=== PATIENT | male | born 1940 | race Caucasian/White ===

== ENCOUNTER 2017-09-12 09:12 | Inpatient (IN) | payer OTHER ==
[~2017-09-12] VITALS: Ht 182.9 cm; Wt 71.7 kg
[~2017-09-12 09:12] MED LIST: ALLOPURINOL 30300 M2 PO; ASA81BEC PO; AZITHROMYCIN 2250 MG PO; B12INJ IM; CALCIUM 500 +1 EAC5 PO; CARVEDILOL3.125 MG PO; COREG PO; DELTASONE20 MG PO; DULCOLAX5 MG PO; DUONEB 2.5-0.5 M3 ML INH; HYDROCODONE-AP1 EAC6 PO; INDOMETHACIN 2525 MG PO; KEFLEX500 MG PO; LEVAQUIN 500 M500 M2 PO; LISINOPRIL5 MG PO; MEDROLDOSEPACK PO; MYSOLINE PO; NIASPAN 500 MG500 M1 PO; NITROGLYCERIN0.4 MG PO; NORCO 5-325 TA1 EACH PO; PLAVIX 75 MG TA75 MG PO; PREDNISONE 10 M10 MG PO; PREDNISONE10 MG PO; PREDNISONE50 MG PO; PRIMIDONE50 MG PO; PROAIR HFA8.5 GM INH; PROTONIX40 M4 PO; SPIRIVA INH; SYMBICORT160 MCG/4. INH; TYLENOL325 MG PO; VALIUM5 MG PO; VITAMIN B-12500 MCG PO; XANAX 0.25 MG0.25 MG PO; ZOCOR40 MG PO
[2017-09-12 09:16] VITALS: BP 129/74
[2017-09-12] MEDS ORDERED: VITAMIN E400 UNIT PO (09:26)
[2017-09-12] MEDS ORDERED: LASIX 20 MG TAB20 MG PO (09:26)
[2017-09-12] MEDS ORDERED: KLOR-CON 1010 MEQ PO (09:26)
[2017-09-12 09:53] LABS: ABSOLUTE BASOPHILS 0.1 thou/uL (0.0-0.2); ABSOLUTE EOSINOPHILS 0.3 thou/uL (0.0-0.7); ABSOLUTE LYMPHOCYTES 1.7 thou/uL (0.8-5.3); BASOPHILS 0.7 %; EOSINOPHILS 2.4 %; HEMATOCRIT 44.1 % (42.0-52.0); HEMOGLOBIN 14.8 gm/dL (14.0-18.0); LYMPHOCYTES 15.1 %; MCH 30.7 pg (26.0-34.0); MCHC 33.5 g/dL (28.0-37.0); MCV 91.6 fL (80.0-100.0); MONOCYTES 9.4 %; NUCLEATED RBCS 0 /100WBC; PLATELET COUNT* 71 thou/uL (150-400); POLYS 72.4 %; RBC 4.82 mil/uL (4.50-6.00); RDW-CV 15.8 % (10.5-14.5)
[2017-09-12 10:03] LABS: CALCIUM 8.6 mg/dL (8.5-10.1); CREATININE 1.3 mg/dL (0.6-1.3); POTASSIUM 3.9 mmol/L (3.5-5.1)
[2017-09-12 10:13] LABS: ALBUMIN 3.7 g/dL (3.4-5.0); MAGNESIUM 1.6 mg/dL (1.8-2.4); TOTAL BILIRUBIN 0.2 mg/dL (<0.1-1.0); TOTAL PROTEIN 6.8 g/dL (6.4-8.2)
[2017-09-12 10:45] VITALS: BP 95/54
[2017-09-12 11:01] LABS: BE -1.5 mmol/L (-2 to +3); PCO2 38.5 mmHg (35.0-45.0); pH 7.395 (7.340-7.450)
[2017-09-12 11:05] LABS: PO2 308.2 mmHg (75.0-100.0)
[2017-09-12 12:10] VITALS: BP 106/76
--- NOTE | 2017-09-12 14:16 | NUR ---
RECEIVED PT FROM Ranjan AT 1220, REPORT FROM JEAN-PAUL AT 1140. PT ARRIVED TO VIA AMBULANCE R/T RESPIRATORY DISTRESS/FAILURE. PT IN BED, BED IN LOW AND LOCKED POSITION, BED ALARM ON FOR PT SAFETY, FALL PRECAUTIONS IN PLACE. CALL BUTTON AND PERSONAL ITEMS PLACED IN REACH, AT BEDSIDE. ADMISSION, SEPSIS, VS COMPLETED. HEART STRIP COMPLETED, SEE CHART. VSS ON 3L NC, CONVERTIBLE POWER SHOVEL OPERATOR NSR/PAC'S 93 BPM. PULSES RADIAL AND PEDAL WNL, NO EDEMA NOTED. LUNGS WHEEZY PER AUSCULTATION BILATERALLY. ABD SOFT, NON TENDER TO PALPATION. LABS REVIEWED. PERRL, AFEBRILE, SKIN INTACT WITH SCATTERED BRUISING R/T BLOOD THINNER MEDICATION PER PT AND STATEMENT. IV IN RIGHT AC STARTED IN FIELD PATENT AND RECEIVING FLUIDS. MEDS RECONCILED AND MD NOTIFIED. PT UP SBA, WEAK, FATIGUED. PT REFUSING BIPAP. PT DENIES PAIN. WILL CONTINUE TO MONITOR.
[2017-09-12 19:40] VITALS: BP 93/65
--- NOTE | 2017-09-12 20:03 | NUR ---
BEDSIDE REPORT TO DIRECTOR UTILIZATION MANAGEMENT FOR CONTINUED CARES. PT IN BED, VERY ANXIOUS, AGITATED, STATES HE IS NOT ABLE TO BREATH. RESPIRATIONS 16, O2 STAT 95%, LUNG SOUNDS LESS WHEEZY, CLEARER THAN EARLIER IN SHIFT, COLOR IN EXTREMEITES IMPROVED, NOT DUSKY, PINKER NOW. HRRR PER MONITOR AND AUSCULTATION. HEPARIN GTT CONTINUES. FALL PRECAUTIONS IN PLACE, PT BEDREST R/T CONFIRMED PE'S IN LUNGS BILATERALLY. AT BEDSIDE. HOURLY ROUNDING COMPLETED. PT CONTINUES ON 3L O2 NC.
[2017-09-12 21:13] LABS: INFLUENZA A ANTIGEN None Detected (None Detect); INFLUENZA B ANTIGEN None Detected (None Detect)
[2017-09-12 23:41] LABS: URINE BILIRUBIN NEGATIVE (Negative); URINE BLOOD TRACE (Negative); URINE CLARITY CLEAR; URINE COLOR STRAW; URINE GLUCOSE-RANDOM NEGATIVE (Negative); URINE KETONES NEGATIVE (Negative); URINE LEUKOCYTES-REFLEX NEGATIVE (Negative); URINE NITRITE-REFLEX NEGATIVE (Negative); URINE PROTEIN NEGATIVE (Negative); URINE UROBILINOGEN 0.2 E.U./dl (0.2-1.0)
[2017-09-13] VITALS (7 sets, daily range): BP systolic 89–135; BP diastolic 58–75
[2017-09-13 05:09] LABS: HEMATOCRIT 41.2 % (42.0-52.0); HEMOGLOBIN 13.7 gm/dL (14.0-18.0); MCH 30.8 pg (26.0-34.0); MCHC 33.3 g/dL (28.0-37.0); MCV 92.7 fL (80.0-100.0); MPV 9.9 fl. (7.2-11.1); NUCLEATED RBCS 0 /100WBC; PLATELET COUNT* 63 thou/uL (150-400); RBC 4.44 mil/uL (4.50-6.00); RDW-CV 16.1 % (10.5-14.5); WBC 10.9 thou/uL (4.0-11.0)
--- NOTE | 2017-09-13 05:40 | NUR ---
END SHIFT: PT RESTED WELL. REMAINS ON 3L. NO COMPLAINTS OF PAIN. ANXIETY HAS DECREASED OVER SHIFT. HEPARIN GTT CURENTLY INFUSING, PT IS TOLERATING WELL. SR/ST ON MONITOR. SAFETY RECAUTIONS IN PLACE. PERFORMED HOURLY ROUNDING. WILL CONT TO MONITOR.
[2017-09-13 05:52] LABS: INR 1.1; PROTIME 10.6 Seconds (9.20-11.50)
[2017-09-13 06:03] LABS: CALCIUM 8.8 mg/dL (8.5-10.1); CREATININE 1.4 mg/dL (0.6-1.3)
[2017-09-13 06:09] LABS: POTASSIUM 5.4 mmol/L (3.5-5.1)
[2017-09-13 07:44] LABS: ABSOLUTE LYMPHOCYTES 0.4 thou/uL (0.8-5.3); ABSOLUTE MONOCYTES 0.2 thou/uL (0.0-1.2); ABSOLUTE NEUTROPHILS 10.2 thou/uL (1.6-8.1); PLATELET ESTIMATE DECREASED
--- NOTE | 2017-09-13 13:51 | EKG ---
[place] [address] ELECTROCARDIOGRAM REPORT Name: LEAH BROOKS Room: [address] ADM IN .R.#: [id number] Admission: 09/12/17 Attend Phys: Matthew Tristan MD Discharge: Date of : 44 Report #: [id number] THIS REPORT FOR: //name// [facility] ED Test Date: 2017-09-12 Test Time: 09:30:18 Pat Name: LEAH BROOKS Department: Room: [address] Gender: M Gis Technician: : 1940 Requested By: Matthew Tristan Order Number: [id number] Reading MD: Frank Brothers Measurements Intervals [place] Rate: 101 P: 64 RI: 128 QRS: -12 QRSD: 73 T: 50 QT: 361 QTc: 468 Interpretive Statements Sinus tachycardia Atrial premature complex Minimal ST depression, lateral leads Compared to ECG 09/08/2016 11:37:37 Atrial premature complex(es) now present ST (T wave) deviation now present Myocardial infarct finding no longer present Electronically Signed On 09-13-2017 13:51:05 VEST TAILOR by Frank Brothers [email or web address] <ELECTRONICALLY SIGNED> By: Frank Brothers MD, FACC 09/13/17 1351 0930 0930 Frank Brothers MD, FAC /EPI
--- NOTE | 2017-09-13 13:53 | EKG ---
[place] [address] ELECTROCARDIOGRAM REPORT Name: LEAH BROOKS Room: [address] ADM IN .R.#: [id number] Admission: 09/12/17 Attend Phys: Matthew Tristan MD Discharge: Date of : 44 Report #: [id number] THIS REPORT FOR: //name// [facility] Test Date: 2017-09-12 Test Time: 18:31:29 Pat Name: LEAH BROOKS Department: Room: [facility] Gender: M Field Project Manager: [facility] : 1940 Requested By: Sangeetha Weinberg Order Number: [id number] MD: Frank Brothers Measurements Intervals [place] Rate: 97 P: 67 WV: 130 QRS: -26 QRSD: 71 T: 64 QT: 355 QTc: 451 Interpretive Statements Sinus rhythm Borderline left axis deviation Baseline wander in lead(s) V5,V6 Compared to ECG 09/08/2016 11:37:37 Sinus tachycardia no longer present Myocardial infarct finding no longer present Electronically Signed On 09-13-2017 13:53:11 DISC PAD PLATE FILLER by Frank Brothers [email or web address] <ELECTRONICALLY SIGNED> By: Frank Brothers MD, FACC 09/13/17 1353 1831 1831 Frank Brothers MD, FAC /EPI
--- NOTE | 2017-09-13 20:29 | NUR ---
ASSUMED CARES AT BEDSIDE REPORT AT 0700. PT IN BED, BED IN LOW AND LOCKED POSITION, FALL PRECAUTIONS IN PLACE. CALL BUTTON AND PERSONAL ITEMS IN PT REACH. PT A&O X4, DENIES PAIN AT THIS TIME, BYPRODUCTS MAKER TRACING SR/ST, VSS ON 3L O2 NC. SKIN INTACT, SCATTERED BRUISING AND SCARS. PT BEDREST AND SIT ON EDGE/SIDE OF BED WITH TRAY IN FRONT OF PT. LUNGS MUCH IMPROVED FROM YESTERDAY, CLEAR TO DIMINISHED, NO WHEEZING AUSCULTATED, REGULAR RESPIRATIONS, AFEBRILE, PERRL, ABD SOFT, NON TENDER TO PALPATION. AT BEDSIDE. PT STATED HE IS LESS ANXIOUS AND FEELS HE IS BREATHING EASIER. HEPARIN GTT AT 1000 UNITS/10 ML HR. FLU SWAB NEGATIVE. NO EDEMA NOTED. GOOD OUTPUT WITH URINAL. PT EDUCATED ON USE OF FLUTTER AND INCENTIVE SPIROMETER. MEDS WELL TAKEN PO, PT COOPERATIVE AND PLEASANT, SMILING. HOURLY ROUNDS COMPLETED. IV IN RIGHT AC PATENT WITH FLUIDS INFUSING, LEFT HAND IV SALINE LOCKED, NO S/S OF INFECTION. PT PROGRESSING TOWARDS GOAL. REPORT TO LIBRARIAN FOR CONTINUED CARES.
[2017-09-14 03:44] VITALS: BP 96/66
[2017-09-14 04:22] LABS: ABSOLUTE BASOPHILS 0.1 thou/uL (0.0-0.2); ABSOLUTE LYMPHOCYTES 0.4 thou/uL (0.8-5.3); ABSOLUTE MONOCYTES 0.7 thou/uL (0.0-1.2); ABSOLUTE NEUTROPHILS 9.9 thou/uL (1.6-8.1); BASOPHILS 0.7 %; HEMATOCRIT 37.6 % (42.0-52.0); LYMPHOCYTES 3.9 %; MCH 30.6 pg (26.0-34.0); MCHC 34.5 g/dL (28.0-37.0); MCV 88.8 fL (80.0-100.0); MONOCYTES 6.2 %; MPV 9.1 fl. (7.2-11.1); NUCLEATED RBCS 0 /100WBC; PLATELET COUNT* 73 thou/uL (150-400); POLYS 89.2 %; RBC 4.23 mil/uL (4.50-6.00); RDW-CV 15.7 % (10.5-14.5); WBC 11.1 thou/uL (4.0-11.0)
--- NOTE | 2017-09-14 05:10 | NUR ---
PT CARE ASSUMED AFTER REPORT. ASSESSMENT COMPLETE. SR ON MONITOR. HEPARIN GTT RAISED TO 12ML/HR PER PROTOCOL AFTER PTT RESULTS. O2 3L NC. PT BECAME ANGRY AND AGGRESSIVE WITH STAFF OVER GOING TO THE BATHROOM. PT FELT THAT HE WAS UNABLE TO WAIT FOR EXTENSION TUBING FOR HIS O2 PRIOR TO GOING TO THE BATHROOM. EXPLAINED TO PT THE NEED FOR THE O2 TO AMBULATE TO THE BATHROOM. PT CONTINUED TO REFUSE AND BECAME ANGRIER AND GOT UP. WHEN PT WAS LEAVING THE BATHROOM HE STATED THAT HE WAS NOT SUPPOSED TO BE WALKING ANYWAY. HE THEN PUSHED THE IV POLE INTO PILO, THE PCT. PT WALKED TO THE BED AND AND LAID DOWN. O2 PLACED BACK ON. RESPIRATORY THERAPY NOTIFIED OF NEED FOR EXTENTION TUBING. IVF INFUSING. DENIES PAIN. PROGRESSING TOWARDS GOALS.
[2017-09-14 08:00] VITALS: BP 120/71
--- NOTE | 2017-09-14 13:47 | NUR ---
ASSUMED CARE OF PATIENT THIS AT O730. PATIENT IS ALERT AND ORIENTED X 4. HE DENIES PAIN BUT C/O RESTLESSNESS. PATIENT ASSISTED UP TO THE CHAIR THIS AM. PATIENT STATED THAT HE FELT MUCH BETTER. PATIENT CONTINUES ON HEPARIN THERAPY. HE IS TO BE STARTED ON PO ANTICOAGULANTS TODAY. TELE SHOWS SR. HE IS ON O2 AT 2 LITERS THIS AFTERNOON. PATIENT HAD TAKEN HIS O2 OFF FOR A TIME AND HIS O2 SATS DROPPED TO HE 80S. PATIENT DENIES PAIN. MEDICATED FOR ANXIETY X 1. PATIENT TAKEN TO RADIOLOGY FOR DOPPLERS PER W/C.
--- NOTE | 2017-09-14 14:14 | NUR ---
RX FOR XARELTO CALLED IN TO [facility] [phone]. XARELTO 15 MG BID FOR 21 DAYS IS $32.00. XARELTO 20 MG DAILY AFTER THAT, THE PHARMACY CAN'T GET A MCMILLAN FROM THE INSURANCE YET BUT SHOULD BE AROUND THE SAME COST.
--- NOTE | 2017-09-14 15:25 | NUR ---
CM ASSESSMENT: Pt is A&O. Resides at home with , at bedside. Pt is independent with ADLs, continues to cook, clean and drive. Pt uses home o2 and has a neb through [facility]. No other DME. Hx of [facility]. No hx of SNF. Goal is to return home once medically stable. Jing costed, $32, and at pharmacy ready to be picked up. Following for dc needs.
--- NOTE | 2017-09-14 16:22 | 2DMMODE ---
[place] [address] 2 D/M-MODE ECHOCARDIOGRAM Name: LEAH BROOKS Room: [address] IN [facility]#: [id number] Admission: 09/12/17 Attend Phys: Matthew Tristan, Discharge: Date of : 44 Date of Service: 09/14/17 1622 Report #: [id number] THIS REPORT FOR: //name// APPROVED REPORT Study performed: 09/14/2017 15:04:27 EXAM: Comprehensive 2D, Doppler, and color-flow Echocardiogram Patient Location: In-Patient Room #: [facility] Status: routine BSA: 1.92 HR: 85 bpm BP: 96/66 mmHg Rhythm: NSR Other Information Study Quality: Good Indications Pulmonary Embolism Dyspnea 2D Dimensions LVEF(%): 66.81 (>50%) IVSd: 14.14 (7-11mm) LVOT Diam: 24.89 (18-24mm) LVDd: 40.98 mm PWd: 11.17 (7-11mm) Ascending Ao: 39.50 (22-36mm) LVDs: 26.00 (25-40mm) Aortic Root: 35.06 mm Brasher's LVEF: 66.81 % Volumes Left Atrial Volume (Systole) LA ESV Index: 14.30 mL/m2 Aortic Valve AoV Peak Jeffrey.: 3.33 m/s AO Peak Gr.: 44.35 mmHg LVOT Max P.98 mmHg AO Mean Gr.: 27.72 mmHg LVOT Mean P.70 mmHg LVOT Max V: 0.86 m/s AO V2 VTI: 68.06 cm LVOT Mean V: 0.61 m/s SUSAN (VTI): 1.47 cm2 LVOT V1 VTI: 20.52 [place] [address] 2 D/M-MODE ECHOCARDIOGRAM Name: LEAH BROOKS Room: [address] IN [facility].#: [id number] Admission: 09/12/17 Attend Phys: Matthew Tristan, Discharge: Date of : 44 Date of Service: 09/14/17 1622 Report #: [id number] E/A Ratio: 0.64 MV Decel. Time: 254.85 ms MV E Max Jeffrey.: 0.52 m/s MV PHT: 73.91 ms MVA (PHT): 2.98 cm2 TDI E/Lateral E': 7.43 E/Medial E': 8.67 Medial E' Jeffrey.: 0.06 m/s Lateral E' Jeffrey.: 0.07 m/s Pulmonary Valve PV Peak Jeffrey.: 0.76 m/s PV Peak Gr.: 2.33 mmHg Left Ventricle The left ventricle is normal size. There is normal LV segmental wall motion. Mild concentric left ventricular hypertrophy. Left ventricular systolic function is normal. The left ventricular ejection fraction is within the normal range. LVEF is 60-65%. Grade I - abnormal relaxation pattern. Right Ventricle The right ventricle is normal size. The right ventricular systolic function is normal. Atria The left atrium size is normal. The right atrium size is normal. Aortic Valve Mild aortic valve sclerosis. Trace aortic regurgitation. Moderate aortic stenosis. Mitral Valve The mitral valve is normal in structure. There is no mitral valve regurgitation noted. No evidence of mitral valve stenosis. Tricuspid Valve The tricuspid valve is normal in structure. There is no tricuspid valve regurgitation noted. Pulmonic Valve Pulmonic valve is not well visualized. There is no pulmonic [place] [address] 2 D/M-MODE ECHOCARDIOGRAM Name: LEAH BROOKS Room: [address]#: [id number] Admission: 09/12/17 Attend Phys: Matthew Tristan, Discharge: Date of : 44 Date of Service: 09/14/17 1622 Report #: [id number] Aortic root is mildly dilated. IVC is normal in size and collapses with >50% inspiration Pericardium There is no pericardial effusion. <Conclusion> LVEF is 60-65%. Moderate aortic stenosis. <ELECTRONICALLY SIGNED> By: Diego Mejia MD, FACC 09/14/171621 21 21 Diego Mejia MD, FACC /INF
[2017-09-14 16:54] VITALS: BP 108/54
[2017-09-14 20:00] VITALS: BP 120/67
[2017-09-15] VITALS: BP 108/59
[2017-09-15 04:00] VITALS: BP 108/66
[2017-09-15 04:50] LABS: ABSOLUTE LYMPHOCYTES 0.5 thou/uL (0.8-5.3); ABSOLUTE MONOCYTES 0.8 thou/uL (0.0-1.2); ABSOLUTE NEUTROPHILS 11.3 thou/uL (1.6-8.1); BASOPHILS 0.1 %; HEMOGLOBIN 12.7 gm/dL (14.0-18.0); LYMPHOCYTES 3.6 %; MCH 30.6 pg (26.0-34.0); MCHC 34.2 g/dL (28.0-37.0); MCV 89.4 fL (80.0-100.0); MONOCYTES 6.6 %; MPV 9.5 fl. (7.2-11.1); NUCLEATED RBCS 0 /100WBC; PLATELET COUNT* 83 thou/uL (150-400); POLYS 89.7 %; RBC 4.14 mil/uL (4.50-6.00); RDW-CV 15.7 % (10.5-14.5); WBC 12.6 thou/uL (4.0-11.0)
[2017-09-15 08:39] VITALS: BP 116/62
--- NOTE | 2017-09-15 08:50 | NUR ---
ASSUMED CARE OF PT AROUND 0700 THIS AM. REFER TO ASSESSMENT. PT VOICES NO CONCERNS THIS AM. VSS. AT BEDSIDE. PT REMAINS ON 2L O2/NC. STATES PRN HOME DOSE. TELE SR. NO OTHER CONERNS AT THIS TIME. CLWR. WCTM.
[2017-09-15] MEDS ORDERED: XARELTO15 MG PO (11:28)
[2017-09-15] MEDS ORDERED: LEVAQUIN 500 M500 M2 PO (11:28)
[2017-09-15] MEDS ORDERED: PREDNISONE 10 M10 MG PO (11:28)
[2017-09-15 12:04] VITALS: BP 113/72
[2017-09-15 12:08] VITALS: BP 113/72
--- NOTE | 2017-09-15 12:34 | NUR ---
I have reviewed the documentation by EDGARD RAYO from 09/15/17 to 09/15/17 and I concur with it. LORNA OROZCO
--- NOTE | 2017-09-15 12:39 | NUR ---
Pt discharging to home today, declined HH. in room and will transport
--- NOTE | 2017-09-15 14:02 | NUR ---
PT GIVEN DISCHARGE INSTRUCTIONS WITH AND THEY VERBALIZE UNDERSTANDING. NEW PRESCRIPTIONS SENT ELECTRONICALLY TO PHARMACY. PT DC'D WITH ALL BELONGINGS PER W/C WITH NURSING STAFF AND PER PRIVATE VEHICLE. NO OTHER CONCERNS AT THIS TIME.
--- NOTE | 2017-09-15 14:43 | NUR ---
ORDER RECEIVED FOR OT EVAL AND TREAT 09/14/17, WHEN EVALUATION ATTEMPTED 09/15/17 PATIENT HAD DISCHARGED HOME WITH SPOUSE AND DENIED HOME HEALTH.
== END 2017-09-15 14:08 | disposition home or self-care (01) | DRG 175 ==
LOC: M.ERS 09:12 → M.2W 10:31 → M.TBA-ER 10:31 → M.2W 12:16
PROVIDERS: Personal Emergency Response Attendant; ADMIT Internal Medicine
DX: I26.09 Other pulmonary embolism with acute cor pulmonale (principal); J96.20 Acute and chronic respiratory failure, unspecified whether with hypoxia or hypercapnia; J18.9 Pneumonia, unspecified organism; J44.0 Chronic obstructive pulmonary disease with (acute) lower respiratory infection; R65.10 Systemic inflammatory response syndrome (SIRS) of non-infectious origin without acute organ dysfunction; I82.412 Acute embolism and thrombosis of left femoral vein; I82.432 Acute embolism and thrombosis of left popliteal vein; I82.4Z2 Acute embolism and thrombosis of unspecified deep veins of left distal lower extremity; J44.1 Chronic obstructive pulmonary disease with (acute) exacerbation; J20.9 Acute bronchitis, unspecified; I25.10 Atherosclerotic heart disease of native coronary artery without angina pectoris; N18.2 Chronic kidney disease, stage 2 (mild); F41.0 Panic disorder [episodic paroxysmal anxiety]; F41.9 Anxiety disorder, unspecified; F03.90 Unspecified dementia, unspecified severity, without behavioral disturbance, psychotic disturbance, mood disturbance, and anxiety; Z90.49 Acquired absence of other specified parts of digestive tract; I25.2 Old myocardial infarction; Z87.891 Personal history of nicotine dependence; Z79.899 Other long term (current) drug therapy

== ENCOUNTER 2018-09-23 08:59 | Emergency (ER) | payer OTHER ==
[~2018-09-23] VITALS: Ht 180.3 cm; Wt 78.9 kg
[~2018-09-23 08:59] MED LIST changes: +KLOR-CON 1010 MEQ PO; +LASIX 20 MG TAB20 MG PO; +VITAMIN E400 UNIT PO; +XARELTO15 MG PO
[2018-09-23 09:28] LABS: ABSOLUTE BASOPHILS 0.2 thou/uL (0.0-0.2); ABSOLUTE EOSINOPHILS 0.1 thou/uL (0.0-0.7); ABSOLUTE LYMPHOCYTES 1.7 thou/uL (0.8-5.3); ABSOLUTE MONOCYTES 1.3 thou/uL (0.0-1.2); ABSOLUTE NEUTROPHILS 11.9 thou/uL (1.6-8.1); HEMATOCRIT 40.3 % (42.0-52.0); HEMOGLOBIN 12.8 gm/dL (14.0-18.0); LYMPHOCYTES 11.3 %; MCH 26.3 pg (26.0-34.0); MCHC 31.8 g/dL (28.0-37.0); MCV 82.7 fL (80.0-100.0); MONOCYTES 8.7 %; MPV 8.5 fl. (7.2-11.1); NUCLEATED RBCS 0 /100WBC; PLATELET COUNT* 122 thou/uL (150-400); RBC 4.88 mil/uL (4.50-6.00); RDW-CV 17.8 % (10.5-14.5); WBC 15.3 thou/uL (4.0-11.0)
[2018-09-23 09:32] LABS: ANION GAP 7 mmol/L (7-16); BUN 16 mg/dL (7-18); CALCIUM 8.2 mg/dL (8.5-10.1); CHLORIDE 107 mmol/L (98-107); CO2 28 mmol/L (21-32); CREATININE 1.4 mg/dL (0.6-1.3); GLUCOSE 86 mg/dL (70-99); POTASSIUM 4.3 mmol/L (3.5-5.1); SODIUM 142 mmol/L (136-145)
[2018-09-23 09:38] LABS: ALKALINE PHOSPHATASE 98 U/L (46-116); LIPASE 224 U/L (73-393); MAGNESIUM 1.7 mg/dL (1.8-2.4); SGOT 6 U/L (15-37); SGPT 29 U/L (30-65); TOTAL BILIRUBIN 0.2 mg/dL (<0.1-1.0); TOTAL PROTEIN 7.4 g/dL (6.4-8.2); TROPONIN-I LEVEL <0.06 ng/mL (<0.06)
[2018-09-23 11:12] LABS: INFLUENZA A ANTIGEN None Detected (None Detect); INFLUENZA B ANTIGEN None Detected (None Detect)
[2018-09-23] MEDS ORDERED: LEVAQUIN 750 M750 MG PO (11:31)
[2018-09-23] MEDS ORDERED: HYDROCODONE-AP1 EAC6 PO (11:31)
[2018-09-23 12:20] VITALS: BP 142/49
--- NOTE | 2018-09-23 17:17 | EKG ---
[place] [address] ELECTROCARDIOGRAM REPORT Name: LEAH BROOKS [id number] Admission: 09/23/18 Attend Phys: Discharge: 09/23/18 Date of : 44 Report #: [id number] THIS REPORT FOR: //name// [facility] ED Test Date: 2018-09-23 Test Time: 09:05:05 Pat Name: LEAH BROOKS Department: Room: Gender: M Automotive Service Cashier: IMER : 1940 Requested By: John Toure Order Number: [id number] MD: Diego Mejia Measurements Intervals [place] Rate: 102 P: 66 TN: 135 QRS: -36 QRSD: 111 T: 133 QT: 370 QTc: 483 Interpretive Statements Sinus tachycardia artifact noted Left axis deviation Repol abnormality Baseline wander in lead(s) I,II,aVR,aVL,aVF,V1,V3,V4,V6 Compared to ECG 09/12/2017 18:31:29 Sinus rhythm no longer present Electronically Signed On 09-23-2018 17:17:10 FLORAL ASSISTANT by Diego Mejia [email or web address] <ELECTRONICALLY SIGNED> By: Diego Mejia MD, [facility] 09/23/18 1717 0905 0905 Diego Mejia MD, [facility] /EPI
--- NOTE | 2018-09-23 17:17 | EKG ---
[place] [address] ELECTROCARDIOGRAM REPORT Name: LEAH BROOKS [id number] Admission: 09/23/18 Attend Phys: Discharge: 09/23/18 Date of : 44 Report #: [id number] THIS REPORT FOR: //name// [facility] ED Test Date: 2018-09-23 Test Time: 09:22:46 Pat Name: LEAH RAYGOZAER Department: Room: Gender: M Money Market Clerk: IMER : 1940 Requested By: John Toure Order Number: [id number] Reading MD: Diego Mejia Measurements Intervals [place] Rate: 83 P: 44 UT: 126 QRS: -18 QRSD: 76 T: 145 QT: 358 QTc: 421 Interpretive Statements Sinus rhythm Borderline left axis deviation Repol abnrm suggests ischemia, lateral leads Baseline wander in lead(s) V6 Electronically Signed On 09-23-2018 17:17:40 DRILLING MACHINE RUNNER by Diego Mejia [email or web address] <ELECTRONICALLY SIGNED> By: Diego Mejia MD, [facility] 09/23/18 1717 0922 1 Diego Mejia MD, FACC /EPI
--- NOTE | 2018-09-23 17:18 | EKG ---
[place] [address] ELECTROCARDIOGRAM REPORT Name: LEAH BROOKS [id number] Admission: 09/23/18 Attend Phys: Discharge: 09/23/18 Date of : 44 Report #: [id number] THIS REPORT FOR: //name// [facility] ED Test Date: 2018-09-23 Test Time: 11:03:54 Pat Name: LEAH RAYGOZAER Department: Room: Gender: M Household Assistant: Turner MCNEAL : 1940 Requested By: John Toure Order Number: [id number] MD: Diego Mejia Measurements Intervals [place] Rate: 78 P: 46 IN: 130 QRS: -17 QRSD: 75 T: 162 QT: 348 QTc: 397 Interpretive Statements Sinus rhythm Borderline left axis deviation Abnormal T, consider ischemia, lateral leads Electronically Signed On 09-23-2018 17:18:33 TURN SUPERVISOR by Diego Mejia [email or web address] <ELECTRONICALLY SIGNED> By: Diego Mejia MD, [facility] 09/23/18 1718 1103 1103 Diego Mejia MD, FACC /EPI
== END 2018-09-23 12:20 | disposition home or self-care (01) ==
LOC: M.ERS 08:59
PROVIDERS: Emergency Medicine Emergency Medical Services
DX: J18.9 Pneumonia, unspecified organism (principal); F17.210 Nicotine dependence, cigarettes, uncomplicated; I25.10 Atherosclerotic heart disease of native coronary artery without angina pectoris; N18.2 Chronic kidney disease, stage 2 (mild); J44.9 Chronic obstructive pulmonary disease, unspecified; Z90.49 Acquired absence of other specified parts of digestive tract; Z95.5 Presence of coronary angioplasty implant and graft; Z90.89 Acquired absence of other organs

== ENCOUNTER 2019-04-29 20:18 | Emergency (ER) | payer OTHER ==
[~2019-04-29] VITALS: Ht 182.9 cm; Wt 68.0 kg
[~2019-04-29 20:18] MED LIST changes: +LEVAQUIN 750 M750 MG PO
[2019-04-29] MEDS ORDERED: AMOXICILLIN 50500 MG PO (20:29)
[2019-04-29 20:49] LABS: ABSOLUTE BASOPHILS 0.1 thou/uL (0.0-0.2); ABSOLUTE EOSINOPHILS 0.4 thou/uL (0.0-0.7); ABSOLUTE LYMPHOCYTES 0.4 thou/uL (0.8-5.3); ABSOLUTE MONOCYTES 0.6 thou/uL (0.0-1.2); ABSOLUTE NEUTROPHILS 7.8 thou/uL (1.6-8.1); EOSINOPHILS 4.4 %; HEMATOCRIT 40.7 % (42.0-52.0); HEMOGLOBIN 13.4 gm/dL (14.0-18.0); LYMPHOCYTES 4.6 %; MCH 28.6 pg (26.0-34.0); MCV 86.7 fL (80.0-100.0); MONOCYTES 6.7 %; MPV 8.9 fl. (7.2-11.1); NUCLEATED RBCS 0 /100WBC; PLATELET COUNT* 67 thou/uL (150-400); POLYS 83.3 %; RBC 4.69 mil/uL (4.50-6.00); RDW-CV 17.5 % (10.5-14.5); WBC 9.4 thou/uL (4.0-11.0)
[2019-04-29 20:57] LABS: ANION GAP 7 mmol/L (7-16); BUN 9 mg/dL (7-18); CALCIUM 8.1 mg/dL (8.5-10.1); CHLORIDE 108 mmol/L (98-107); CO2 27 mmol/L (21-32); CREATININE 1.5 mg/dL (0.6-1.3); GLUCOSE 97 mg/dL (70-99); POTASSIUM 4.8 mmol/L (3.5-5.1); PROTIME 10.5 Seconds (9.20-11.50); SODIUM 142 mmol/L (136-145)
[2019-04-29 21:08] LABS: ALBUMIN 3.9 g/dL (3.4-5.0); ALKALINE PHOSPHATASE 97 U/L (46-116); LIPASE 182 U/L (73-393); NT-PRO BRAIN NAT PEPTIDE 397 pg/mL (<300); SGOT < 5 U/L (15-37); SGPT 26 U/L (30-65); TOTAL BILIRUBIN 0.2 mg/dL (<0.1-1.0); TOTAL PROTEIN 6.8 g/dL (6.4-8.2); TROPONIN-I LEVEL <0.06 ng/mL (<0.06)
[2019-04-29 23:40] VITALS: BP 112/68
--- NOTE | 2019-04-30 09:55 | EKG ---
[place] [address] ELECTROCARDIOGRAM REPORT Name: LEAH BROOKS [id number] Admission: 04/29/19 Attend Phys: Discharge: 04/29/19 Date of : 44 Report #: [id number] THIS REPORT FOR: //name// [facility] ED Test Date: 2019-04-29 Test Time: 20:29:32 Pat Name: LEAH BROOKS Department: Room: Gender: M Tanning Wheel Filler: GALINA : 1940 Requested By: Virginia Pino Order Number: [id number] MD: Mateo Montogmery Measurements Intervals [place] Rate: 95 P: 96 IA: 134 QRS: -16 QRSD: 76 T: 164 QT: 340 QTc: 428 Interpretive Statements Sinus rhythm Borderline left axis deviation Nonspecific repol abnormality, diffuse leads Baseline wander in lead(s) V2 Compared to ECG 09/23/2018 11:03:54 Early repolarization now present T-wave abnormality no longer present Possible ischemia no longer present Electronically Signed On 04-30-2019 9:55:19 CDT by Mateo Montgomery [email or web address] <ELECTRONICALLY SIGNED> By: Sandra Montgomery MD, [facility] 04/30/19954 28 28 Sandra Montgomery MD, [facility] /EPI
== END 2019-04-29 23:41 | disposition home or self-care (01) ==
LOC: M.ERS 20:18
PROVIDERS: Emergency Medicine
DX: J44.1 Chronic obstructive pulmonary disease with (acute) exacerbation (principal); N18.2 Chronic kidney disease, stage 2 (mild); I25.10 Atherosclerotic heart disease of native coronary artery without angina pectoris; I25.2 Old myocardial infarction; F17.210 Nicotine dependence, cigarettes, uncomplicated; Z90.49 Acquired absence of other specified parts of digestive tract; Z95.2 Presence of prosthetic heart valve; Z90.89 Acquired absence of other organs; Z98.890 Other specified postprocedural states

== ENCOUNTER 2019-06-19 10:02 | Emergency (ER) | payer OTHER ==
[~2019-06-19] VITALS: Ht 177.8 cm; Wt 71.7 kg
[~2019-06-19 10:02] MED LIST changes: +AMOXICILLIN 50500 MG PO
[2019-06-19] MEDS ORDERED: KEFLEX500 M1 PO ×2 (10:28→10:32)
[2019-06-19] MEDS ORDERED: BACTRIM DS TAB1 EACH PO ×2 (10:28→10:32)
[2019-06-19] MEDS ORDERED: NORCO 5-325 TA1 EAC1 PO (10:28)
[2019-06-19 10:43] VITALS: BP 103/64
== END 2019-06-19 10:40 | disposition home or self-care (01) ==
LOC: M.ERS 10:02
DX: L03.115 Cellulitis of right lower limb (principal); J44.9 Chronic obstructive pulmonary disease, unspecified; I25.10 Atherosclerotic heart disease of native coronary artery without angina pectoris; F17.210 Nicotine dependence, cigarettes, uncomplicated; Z95.5 Presence of coronary angioplasty implant and graft

== ENCOUNTER 2019-11-28 00:26 | Inpatient (IN) | payer MEDICARE ==
[2019-11-28] VITALS (15 sets, daily range): BP systolic 103–136; BP diastolic 36–81
[~2019-11-28] VITALS: Ht 177.8 cm; Wt 70.4 kg
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
--- NOTE | ~2019-11-28 | EEG ---
[address] [address] EEG STUDY REPORT Name: LEAH BROOKS Room: [address] IN .R.#: [id number] Admission: 11/28/19 Attend Phys: Delphine Bello Discharge: Date of : 44 Report #: [id number] THIS REPORT FOR: //name// CC: Judy Zavala DATE OF SERVICE: 11/30/2019 This patient is being evaluated for altered mental status. The patient's EEG was done by placing the electrodes by standard 10-20 system of electrode placement. Both referential and sequential montages were used for recording. Background activity in this patient's EEG is about 5-6 Hz and 30 microvolt, which is symmetrical activity. It is slow and disorganized. Photic stimulation is unremarkable. It is tough to tell, but the patient appeared to be asleep during part of this EEG and that is associated with even more slowing. IMPRESSION: This is an abnormal EEG because it is disorganized and poorly formed. That is a nonspecific abnormality, which can occur with encephalopathy, effect of psychotropic medication, dementia, etc. Clinical correlation is recommended. By: [id number] Javier MD /nt
[~2019-11-28 00:26] MED LIST changes: +BACTRIM DS TAB1 EACH PO; +KEFLEX500 M1 PO; +NORCO 5-325 TA1 EAC1 PO
[2019-11-28 01:44] LABS: HEMATOCRIT 40.8 % (42.0-52.0); HEMOGLOBIN 13.6 gm/dL (14.0-18.0); MCH 30.7 pg (26.0-34.0); MCHC 33.4 g/dL (28.0-37.0); MCV 91.9 fL (80.0-100.0); MPV 9.7 fl. (7.2-11.1); NUCLEATED RBCS 0 /100WBC; RBC 4.43 mil/uL (4.50-6.00); RDW-CV 17.3 % (10.5-14.5); WBC 12.7 thou/uL (4.0-11.0)
[2019-11-28 01:50] LABS: CALCIUM 8.2 mg/dL (8.5-10.1); CREATININE 1.8 mg/dL (0.6-1.3); POTASSIUM 4.1 mmol/L (3.5-5.1)
[2019-11-28 01:53] LABS: PLATELET COUNT* 41 thou/uL (150-400)
[2019-11-28 02:00] LABS: ALBUMIN 3.4 g/dL (3.4-5.0); INR 1.1; MAGNESIUM 1.4 mg/dL (1.8-2.4); PROTIME 10.9 Seconds (9.20-11.50); TOTAL BILIRUBIN 0.8 mg/dL (<0.1-1.0); TOTAL PROTEIN 6.3 g/dL (6.4-8.2)
[2019-11-28 02:26] LABS: URINE BLOOD 2+ (Negative); URINE CLARITY CLEAR; URINE COLOR YELLOW; URINE GLUCOSE-RANDOM NEGATIVE (Negative); URINE KETONES TRACE (Negative); URINE LEUKOCYTES-REFLEX NEGATIVE (Negative); URINE NITRITE-REFLEX NEGATIVE (Negative); URINE PROTEIN 2+ (Negative); URINE SPECIFIC GRAVITY 1.025 (1.005-1.030); URINE UROBILINOGEN 0.2 E.U./dl (0.2-1.0)
[2019-11-28 02:30] LABS: BE -1.4 mmol/L (-2 to +3); PCO2 42.3 mmHg (35.0-45.0); pH 7.369 (7.340-7.450)
[2019-11-28 02:31] LABS: PO2 29.2 mmHg (75.0-100.0)
[2019-11-28 02:36] LABS: ICTOTEST (BILI CONFIRMATORY) Negative (Negative); URINE BILIRUBIN 1+ (Negative)
[2019-11-28 02:52] LABS: PCO2 31.9 mmHg (35.0-45.0); PO2 84.4 mmHg (75.0-100.0); pH 7.408 (7.340-7.450)
[2019-11-28 02:55] LABS: BACTERIA-REFLEX >30 Many /HPF (None Seen); CRYSTALS None Seen /LPF (None Seen); FINE GRANULAR CASTS 0-3 Few /LPF (None Seen); HYALINE CASTS 0-3 Few /LPF (None Seen); MUCUS 4-6 Moderate strn/LPF (None Seen); SQUAMOUS 0-3 Few /LPF (0-3); URINE RBC >20 Many /HPF (0-2); WBC CLUMPS Few (None Seen)
[2019-11-28 03:20] LABS: ABSOLUTE BASOPHILS 0.1 thou/uL (0.0-0.2); ABSOLUTE EOSINOPHILS 0.3 thou/uL (0.0-0.7); ABSOLUTE LYMPHOCYTES 1.3 thou/uL (0.8-5.3); ABSOLUTE MONOCYTES 0.9 thou/uL (0.0-1.2); ABSOLUTE NEUTROPHILS 10.2 thou/uL (1.6-8.1); ANISOCYTOSIS Occasional; PLATELET ESTIMATE DECREASED; TOXIC GRANULATION 2+
--- NOTE | 2019-11-28 03:22 | NUR ---
pt became combative hitting, kicking, bending back staffs fingers, pinching, threatning to strangle staff with vs cords and swearing at staff. notifed md of pt agitation. md ordered meds (see mar) and bilateral wrist and ankle restraints.
--- NOTE | 2019-11-28 06:05 | NUR ---
SPOKE TO AND UPDATED ON PTS STATUS AND ADMISSION TO THE ICU GAVE ICU EXTENSION
[2019-11-28 08:18] LABS: CALCIUM 7.9 mg/dL (8.5-10.1); CREATININE 1.6 mg/dL (0.6-1.3); MAGNESIUM 1.8 mg/dL (1.8-2.4); POTASSIUM 4.3 mmol/L (3.5-5.1)
--- NOTE | 2019-11-28 15:21 | 2DMMODE ---
[place] [address] 2 D/M-MODE ECHOCARDIOGRAM Name: BROOKSLEAH Grayson Room: [address] IN [facility]#: [id number] Admission: 11/28/19 Attend Phys: Delphine massey Sa Discharge: Date of : 44 Date of Service: 11/28/19 1519 Report #: [id number] THIS REPORT FOR: cc: Judy Rubio MD, Emily G. MD Blick,Diego White MD [facility] ~ APPROVED REPORT Study performed: 11/28/2019 13:07:20 EXAM: Comprehensive 2D, Doppler, and color-flow Echocardiogram Patient Location: In-Patient Room #: 006 Status: routine BSA: 1.87 HR: 100 bpm BP: 104/45 mmHg Rhythm: NSR Other Information Technically limited study due to uncooperative patient. Indications Elevated Troponin 2D Dimensions IVSd: 11.24 (7-11mm) LVOT Diam: 23.22 (18-24mm) LVDd: 45.43 mm PWd: 10.89 (7-11mm) Volumes Left Atrial Volume (Systole) LA ESV Index: 22.30 mL/m2 Aortic Valve AoV Peak Jefrfey.: 3.43 m/s AO Peak Gr.: 47.07 mmHg LVOT Max P.40 mmHg AO Mean Gr.: 30.54 mmHg LVOT Mean P.48 mmHg LVOT Max V: 0.92 m/s AO V2 VTI: 71.04 cm LVOT Mean V: 0.55 m/s SUSAN (VTI): 1.18 cm2 LVOT V1 VTI: 19.72 [place] [address] 2 D/M-MODE ECHOCARDIOGRAM Name: LEAH BROOKS Room: [address]#: [id number] Admission: 11/28/19 Attend Phys: Delphine massey Sa Discharge: Date of : 44 Date of Service: 11/28/19 1519 Report #: [id number] E/A Ratio: 0.61 MV Decel. Time: 111.88 ms MV E Max Jeffrey.: 0.73 m/s MV PHT: 32.45 ms MVA (PHT): 6.78 cm2 Left Ventricle The left ventricle is normal size. There is normal LV segmental wall motion. There is normal left ventricular wall thickness. Left ventricular systolic function is normal. The left ventricular ejection fraction is within the normal range. LVEF is 55-60%. Grade I - abnormal relaxation pattern. Right Ventricle The right ventricle is normal size. The right ventricular systolic function is normal. Atria The left atrium size is normal. The right atrium size is normal. Aortic Valve Moderate aortic valve sclerosis. No aortic regurgitation is present. Moderate aortic stenosis. Mitral Valve The mitral valve is normal in structure. Trace mitral regurgitation. No evidence of mitral valve stenosis. Tricuspid Valve The tricuspid valve is normal in structure. There is no tricuspid valve regurgitation noted. Pulmonic Valve The pulmonary valve is normal in structure. There is no pulmonic valvular regurgitation. Great Vessels The aortic root is normal in size. IVC is normal in size and collapses >50% with inspiration. Pericardium There is no pericardial effusion. <Conclusion> [place] [address] 2 D/M-MODE ECHOCARDIOGRAM Name: BROOKSLEAH Room: [address] IN M.R.#: [id number] Admission: 11/28/19 Attend Phys: Delphine massey Sa Discharge: Date of : 44 Date of Service: 11/28/19 1519 Report #: [id number] LVEF is 55-60%. Moderate aortic stenosis. <ELECTRONICALLY SIGNED> By: Diego Mejia MD, [facility] 11/28/19 1519 1519 1919 Diego Mejia MD, FACC /INF
--- NOTE | 2019-11-28 19:31 | NUR ---
PT DROWSY AND LETHARGIC. HYPOGLYCEMIA TREATED TWICE WITH D50 PER PROTOCOL. D5LR RUNNING AT 100 MLS/HR. RESTRAINTS TAKEN OFF AT 1000, PT HASN'T BEEN COMBATIVE OR AGITATED. INCONTINENT OF URINE. PARTIAL BED BATH GIVEN. UPDATED.
[2019-11-29] VITALS (11 sets, daily range): BP systolic 91–121; BP diastolic 43–67
[2019-11-29 03:44] LABS: HEMATOCRIT 35.7 % (42.0-52.0); MCH 30.9 pg (26.0-34.0); MCHC 33.5 g/dL (28.0-37.0); MCV 92.2 fL (80.0-100.0); MPV 9.3 fl. (7.2-11.1); RBC 3.88 mil/uL (4.50-6.00); RDW-CV 16.6 % (10.5-14.5)
[2019-11-29 04:11] LABS: ALBUMIN 2.6 g/dL (3.4-5.0); CALCIUM 8.1 mg/dL (8.5-10.1); CREATININE 1.4 mg/dL (0.6-1.3); POTASSIUM 3.6 mmol/L (3.5-5.1); TOTAL BILIRUBIN 0.7 mg/dL (<0.1-1.0); TOTAL PROTEIN 5.5 g/dL (6.4-8.2)
--- NOTE | 2019-11-29 05:17 | NUR ---
VITALS WNL, AFEBRILE. PT SLEPT ON A OFF, AGITATED AND UNCOOPERATIVE WHEN AWAKE. TRYING TO CLIMB OUT OF BED. DOES NOT FOLLOW COMMANDS, OPENS EYES SPONTANEOUSLY. REMAINS ON 2L O2 PER NC. PT INCONTINENT TO URINE, NO BM THIS SHIFT. NO ACUTE CHANGES OTHERWISE. PT ABLE TO TURN SELF IN BED, UNABLE TO USE CALL LIGHT. BED ALARM ON. PT REMAINS IN COVID PRECAUTIONS. WILL CONTINUE MONITORING.
--- NOTE | 2019-11-29 10:29 | NUR ---
PT IS ALERT AND CONFUSED.FOOD PRODUCTION MACHINE OPERATOR IN PLACE.REMAINS ON 2L O2 NC.PT DOWNGRADED TO TELE STATUS.NO APPARENT PAIN.Q2 HOUR POSITION CHANGES.IV ANTIBIOTICS GIVEN.HOURLY ROUNDING COMPLETED FOR PT SAFETY.FALL PRECAUTIONS IN PLACE.REPORT CALLED TO TELE NURSE.ALL BELONGINGS PACKED AND TAKEN WITH PT.
--- NOTE | 2019-11-29 10:33 | NUR ---
ICU rounds: Pt is tele status. Covid negative. Treating for UTI and PNA. Pt is confused and agitated at times. CM left VM for Pt's to assess prior living situation. Following.
--- NOTE | 2019-11-29 11:00 | NUR ---
PATIENT TRANSFERRED VIA BED FROM ICU TELEPHONE REPORT GIVEN PRIOR TO TRANSFER PATIENT SECURED IN BED PATIENT NOT ALERT, CONFUSED, ALITTLE COMBATIVE BED ALARM ON
--- NOTE | 2019-11-29 13:44 | NUR ---
Daria spoke with Pt's via phone. Per , over the past 2 weeks, Pt has gotten weaker and hadn't eaten or taken meds in 3 days. 2 weeks ago, family took Pt's car keys away, post police pulling him over, per , Pt's legs are extremely week. has a walker at home, but Pt has refused to use it. Pt wears home o2 PRN and at night at 2L, provided through [facility]. states that Pt's gait is "shuffled." also reports that Pt has become more confused. Pt does not have a current dementia dx per and has "parkinsons-like" movements in his hands. Hx of [facility]. No hx of SNF. Per , she is hopeful that Pt will be able to return home at [place]. DARIA spoke with , anticipate that Pt does have dementia, but will need further outpt testing to confirm, anticipates that Pt may need SNF. Following.
--- NOTE | 2019-11-29 14:32 | CON ---
[address] [address] CONSULTATION Name: BROOKSLEAH Grayson Room: [address] IN .R.#: [id number] Admission: 11/28/19 Attend Phys: Delphine Bello Discharge: Date of : 44 Report #: [id number] THIS REPORT FOR: //name// cc: Judy Rubio MD, Emily G. MD ~ THIS REPORT FOR: //name// CC: Judy Zavala DATE OF SERVICE: 11/28/2019 CARDIOLOGY CONSULTATION HISTORY OF PRESENT ILLNESS: The patient is a 79-year-old demented white male who I was asked to see in the hospital today after he was brought to the Emergency Room by family members because of shortness of breath. Unfortunately, the patient is unresponsive at this time. There are no family members available. The patient has been admitted here to [facility] in the past. He actually had a heart catheterization here at [facility] in 2010, nine [address] Tucker. The patient apparently had been having chest discomfort and evidence of a non-STEMI. Cardiac catheterization was performed from the right radial artery. He had a stent placed in the circumflex artery. At the time of the angiogram, the left anterior descending artery had 40% ostial narrowing. He was placed on Plavix. He was here in 2014 with shortness of breath felt to be secondary to COPD. He was here in 2017 with pneumonia. He was felt to have chronic kidney disease. He has been a smoker in the past. He was here in 08/2017 with left lower extremity DVT. He was sent home on Xarelto 50 mg a day. Apparently, that is the last time the patient was admitted here. The patient was brought to the Emergency Room yesterday by paramedics. Apparently he had been weak, short of breath, it has been going on for several days. He had no other complaints at that time. Cardiology consultation was requested. PAST MEDICAL HISTORY: Otherwise significant for hyperlipidemia and hypertension. PAST SURGICAL HISTORY: There is history of appendectomy, tonsillectomy, and wrist surgery. MEDICATIONS: On admission consisted of carvedilol, simvastatin, aspirin, Niaspan, lisinopril, Valium, and primidone. ALLERGIES: He had no known drug allergies. FAMILY HISTORY: [place] [address] CONSULTATION Name: BROOKSLEAH Room: [address]#: [id number] Admission: 11/28/19 Attend Phys: Delphine Bello Discharge: Date of : 44 Report #: [id number] SOCIAL HISTORY: He continues to smoke. No history of alcohol abuse. REVIEW OF SYSTEMS: Cannot be obtained at this time. PHYSICAL EXAMINATION: GENERAL: Revealed an elderly, frail-appearing male, lying in bed. He appeared in no acute distress. He would open his eyes. He would not answer questions. VITAL SIGNS: He had a blood pressure of 110/60, pulse is 110, he was afebrile. HEENT: He was anicteric. Mucous members appear dry. NECK: Veins do not appear distended. CHEST: Clear to auscultation. CARDIOVASCULAR: Regular, tachycardia, grade 2 systolic ejection murmur. ABDOMEN: Soft. EXTREMITIES: Had no edema. SKIN: Cool and dry. NEUROLOGIC: He is able to move all extremities. RADIOLOGICAL DATA: His ECG on admission showed a sinus tachycardia, occasional PAC, and nonspecific ST and T-wave changes. His echocardiogram 2 years ago in 08/2017 showed ejection fraction of 60% with moderate aortic stenosis and a peak gradient across the aortic valve of 44 mmHg. Nuclear stress test in 2017 showed no evidence of ischemia. However, the patient did not achieve target heart rate. Ejection fraction 69%. On his workup yesterday, he had portable chest x-ray that showed atelectasis and infiltrate. CT scan of the head was performed that showed no acute abnormality. CT scan of the chest was performed without contrast that showed tortuous aorta, emphysematous changes, no evidence of pneumothorax. LABORATORY DATA: Sodium 147, potassium 4.3, BUN 24, and creatinine 1.6, it has been as high as 1.8 in the past. His liver function studies were normal. His troponin 0.14, was 0.12 in 2016. BNP is 1479. His white blood cell count was 12.7, hematocrit 40.8, and platelet count was only 41,000, it was actually 66,000 back in 2013. IMPRESSION AND RECOMMENDATIONS: 1. Borderline elevation of troponin. No evidence of myocardial infarction. 2. Pneumonia. 3. Chronic obstructive pulmonary disease. 4. Tobacco abuse. 5. Moderate aortic stenosis. The patient is not an operative candidate. 6. Coronary artery disease. Previous stent. Continue aspirin 81 mg a day. 7. Chronic kidney disease. 8. History of deep venous thrombosis. The patient does not appear to be a very [address] [address] CONSULTATION Name: LEAH BROOKS Room: [facility] IN M.R.#: [id number] Admission: 11/28/19 Attend Phys: Delphine [place] Discharge: Date of : 44 Report #: [id number] good candidate for anticoagulation. 9. Dementia. I would discuss the code status with the family. <ELECTRONICALLY SIGNED> By: Diego Mejia MD, FACC 11/29/19 1432 [id number] Mejia MD, FACC /nt
[2019-11-30] VITALS: BP 104/49
[2019-11-30 04:00] VITALS: BP 117/54
[2019-11-30 04:49] LABS: HEMATOCRIT 35.7 % (42.0-52.0); MCH 30.7 pg (26.0-34.0); MCHC 33.6 g/dL (28.0-37.0); MCV 91.3 fL (80.0-100.0); MPV 9.7 fl. (7.2-11.1); RBC 3.91 mil/uL (4.50-6.00); WBC 11.1 thou/uL (4.0-11.0)
[2019-11-30 05:49] LABS: ALBUMIN 2.3 g/dL (3.4-5.0); CALCIUM 7.7 mg/dL (8.5-10.1); CREATININE 1.3 mg/dL (0.6-1.3); MAGNESIUM 1.4 mg/dL (1.8-2.4); TOTAL BILIRUBIN 0.7 mg/dL (<0.1-1.0); TOTAL PROTEIN 5.3 g/dL (6.4-8.2)
--- NOTE | 2019-11-30 07:48 | NUR ---
PT CARE ASSUMED AT 1930. SAT MAINTAINED IN O2. PT IS LETHARGIC AND DROWSY. CALL LIGHT WITHIN REACH AND BED IN LOW POSITION. INCONTINENT OF BOWEL AND BLADDER, HOURLY ROUNDING DONE FOR PT SAFETY.
[2019-11-30 12:00] VITALS: BP 115/69
[2019-11-30 16:00] VITALS: BP 94/53
[2019-11-30 18:45] VITALS: BP 105/60
[2019-11-30 20:00] VITALS: BP 137/74
[2019-11-30 22:41] LABS: URINE BLOOD 1+ (Negative); URINE CLARITY CLEAR; URINE COLOR YELLOW; URINE GLUCOSE-RANDOM NEGATIVE (Negative); URINE KETONES 2+ (Negative); URINE LEUKOCYTES-REFLEX NEGATIVE (Negative); URINE NITRITE-REFLEX NEGATIVE (Negative); URINE PROTEIN 1+ (Negative); URINE SPECIFIC GRAVITY >= 1.030 (1.005-1.030); URINE UROBILINOGEN 0.2 E.U./dl (0.2-1.0)
[2019-11-30 22:44] LABS: ICTOTEST (BILI CONFIRMATORY) Negative (Negative); URINE BILIRUBIN 2+ (Negative)
[2019-11-30 22:49] LABS: HYALINE CASTS 4-10 Moderate /LPF (None Seen)
[2019-11-30 22:50] LABS: BACTERIA-REFLEX 1-9 Few /HPF (None Seen); CRYSTALS None Seen /LPF (None Seen); MUCUS 4-6 Moderate strn/LPF (None Seen); SQUAMOUS 0-3 Few /LPF (0-3); URINE RBC 0-2 Rare /HPF (0-2); URINE WBC-REFLEX 0-5 Rare /HPF (0-5)
[2019-12-01] VITALS: BP 117/48
[2019-12-01 06:08] VITALS: BP 94/51
--- NOTE | 2019-12-01 07:46 | NUR ---
Pt unresponsive, orientation cannot be determined, GCS is 8. Pt is running S-tach w/ PACs and PVCs. Pt had short interval of SVT once at 0600. Telemetry strip in pt chart. Around 0200 pt experienced severe dyspnea with desaturation r/t thick oropharynx and nasophaynx secretions. Oropharynx and nasopharynx were thoroughly suctioned with significant improvement to work of breathing and oxygen saturation (72% to 96% on 3L NC). Pt also had low-grade fever 100.2 which resolved with administration of scheduled rectal acetaminophen.
[2019-12-01 08:39] LABS: ABSOLUTE EOSINOPHILS 0.1 thou/uL (0.0-0.7); ABSOLUTE LYMPHOCYTES 0.4 thou/uL (0.8-5.3); EOSINOPHILS 0.9 %; HEMOGLOBIN 12.4 gm/dL (14.0-18.0); LYMPHOCYTES 3.6 %; RDW-CV 16.6 % (10.5-14.5)
[2019-12-01 08:40] LABS: CALCIUM 7.5 mg/dL (8.5-10.1); CREATININE 1.4 mg/dL (0.6-1.3); POTASSIUM 3.9 mmol/L (3.5-5.1)
[2019-12-01 08:41] LABS: ABSOLUTE BASOPHILS 0.2 thou/uL (0.0-0.2); ABSOLUTE MONOCYTES 1.3 thou/uL (0.0-1.2); ABSOLUTE NEUTROPHILS 9.6 thou/uL (1.6-8.1); BASOPHILS 1.3 %; HEMATOCRIT 37.8 % (42.0-52.0); MCH 30.3 pg (26.0-34.0); MCHC 32.8 g/dL (28.0-37.0); MCV 92.4 fL (80.0-100.0); MONOCYTES 11.1 %; MPV 10.8 fl. (7.2-11.1); NUCLEATED RBCS 0 /100WBC; POLYS 83.1 %; RBC 4.09 mil/uL (4.50-6.00); WBC 11.6 thou/uL (4.0-11.0)
[2019-12-01 08:51] LABS: PLATELET COUNT* 35 thou/uL (150-400)
[2019-12-01 10:15] LABS: APTT 34.9 Seconds (25.0-31.3); INR 1.1; PROTIME 11.4 Seconds (9.20-11.50)
[2019-12-01 11:40] VITALS: BP 108/54
[2019-12-01 17:00] VITALS: BP 101/52
--- NOTE | 2019-12-01 19:10 | NUR ---
PATINET RESTING IN BED. BEDREST, LETHARGIC, NONRESPONSIVE TO VERBAL STIMULI. BOOD PRESSURE HAS BEEN LOW AT TIMES TODAY AND MD NOTIFIED. FAMILYT CONTACTED AND APRISED OF THE PATIENTS SITUATION. MEDICAL DECISIONS DISCUSSED WITH DPOA BY PHYSICIAN AND DECISIONS WERE MADE BY DPOA TO ASSUME PALLIATVE CARE.
[2019-12-01 20:00] VITALS: BP 108/68
[2019-12-02 00:01] VITALS: BP 106/56
--- NOTE | 2019-12-02 05:20 | NUR ---
PT NONRESPONSIVE, NONVERBAL. PT ON 5L BY VENTURIMASK. IV ABX, PROTONIX RUNNING ORDERED. PT INCONTINENT. HOURLY ROUNDINGS, TURNS COMPLETED. WILL CONTINUE TO MONITOR.
[2019-12-02 07:30] VITALS: BP 108/56
--- NOTE | 2019-12-02 10:11 | NUR ---
WILL DISMISS PT. FROM O.T. [facility] DUE TO PT. IS NOW ON COMFORT MEASURES. UNABLE TO EVALUATE PT. PRIOR TO THIS TIME DUE TO PT. BEING INAPPROPRIATE TO SEE FOR MEDICAL REASONS.
--- NOTE | 2019-12-02 11:00 | NUR ---
Per , continue IVABX through weekend, then home with hospice on Thursday, CM to f/u with /family on Thursday.
--- NOTE | 2019-12-02 12:22 | EKG ---
[place] [address] ELECTROCARDIOGRAM REPORT Name: LEAH BROOKS Room: [address] IN [facility].#: [id number] Admission: 11/28/19 Attend Phys: Delphine massey Sa Discharge: Date of : 44 Date of Service: 11/28/19 0031 Report #: [id number] THIS REPORT FOR: //name// [facility] ED Test Date: 2019-11-28 Test Time: 00:31:48 Pat Name: LEAH BROOKS Department: Room: [facility] Gender: M [employer] Handler: [place] : 1940 Requested By: Virginia Pino Order Number: [id number] MD: Diego Mejia Measurements Intervals [place] Rate: 116 P: 2 IA: 112 QRS: -23 QRSD: 73 T: 116 QT: 275 QTc: 382 Interpretive Statements Sinus tachycardia PAC's Borderline left axis deviation Nonspecific repol abnormality, lateral leads Compared to ECG 04/29/2019 20:29:32 Sinus rhythm no longer present Electronically Signed On 11-28-2019 9:12:03 CDT by Diego Mejia [email or web address] <ELECTRONICALLY SIGNED> By: Diego Mejia MD, [facility] 11/28/19 0912 Diego Mejia MD, [facility] /EPI
--- NOTE | 2019-12-02 18:49 | NUR ---
ASSUMED CARE OF PATIENT AT APPROX 0730. ASSESSMENT COMPLATED AND CHARTED. VSS ON 5 LITERS VENTI MASK. PATIENT IS UNRESPONSIVE AND WILL ONLY OPEN EYES TO PAINFUL STIMULUS. SPOKE WITH PATIENTS DAMARIS THIS MORNING, SHE EXPRESSED WISHES TO HAVE COMFORT CARE IMPLEMENTED, RELAYED THIS TO DR DODSON AND COMFORT CARE ORDERS PLACED. VENTI MASK REMIANS IN PLACE FOR COMFORT. PATIENT TURNED EVERY 2 HOURS. MOTTLING OF SKIN NOTED ON UPPER ARMS. PILLOWS PLACED UNDER ARMS FOR COMFORT AND ELEVATION, WEEPING NOTED TO RIGHT ARM, DRESSINGS CHANGED. UPDATED HIS DAMARIS BY PHONE AT 1800. HOURLY ROUNDS COMPLETED. WILL CONTINUE COMFORT MEASURES.
[2019-12-02 20:00] VITALS: BP 100/51
--- NOTE | 2019-12-03 05:01 | NUR ---
PT REMAINS UNRESPONSIVE THIS SHIFT. DOES NOT OPEN EYES BUT WILL CLOSE MOUTH AROUND SWAB WHEN ORAL CARE PERFORMED. MOUTH SUCTIONED FROTHY MUCOUS AND PT WITHOUT APPARENT GAG REFLEX, NPO. O2 8L VENTI MASK FOR COMFORT, HS SAT 92%. PT RESPIRATIONS REMAIN EVEN AND LABORED, LUNGS COARSE. MORPHINE GIVEN SEVERAL TIMES PRN FOR AIR HUNGER, COMFORT THIS SHIFT. JENARO AND LFA IV SL. ARMS EDEMATOUS, R ARM WEEPING. MOTTLING NOTED DEPENDENTLY. DRSG CDI TO SKIN TEARS ON R ARM. DNR. COMFORT MEASURES IN PLACE. PT TURNED Q2 HOURS, INCONTINENT URINE-RC CARE GIVEN. WILL CONTINUE TO MONITOR AND PROVIDE CARES NEEDED.
[2019-12-03 08:00] VITALS: BP 71/44
--- NOTE | 2019-12-03 12:46 | NUR ---
ASSUMED PT CARE AT 0800, UNRESPONSIVE. PT ON COMFORT CARE. PT O2 SAT AT 90'S THIS AM AT 10L VENTURI MASK. PT CALLED STATING SHE IS OK FOR PT TO BE OFF O2 SUPPLEMENT. DR NOTIFIED. PT HAD PRN MEDS FOR AIR HUNGER, GIVEN ORDERED. PT HAD BED BATH. WILL CONTINUE TO MONITOR.
== END 2019-12-03 13:25 | DRG 871 ==
LOC: M.ERS 00:26 → M.2W 03:21 → M.TBA-ER 03:21 → M.ICU 03:21 → M.2W 11-29 11:10
PROVIDERS: Emergency Medicine; Internal Medicine; ADMIT Family Medicine
DX: A41.9 Sepsis, unspecified organism (principal); G92 Toxic encephalopathy; J96.01 Acute respiratory failure with hypoxia; J69.0 Pneumonitis due to inhalation of food and vomit; I63.89 Other cerebral infarction; F03.91 Unspecified dementia, unspecified severity, with behavioral disturbance; N30.01 Acute cystitis with hematuria; I25.10 Atherosclerotic heart disease of native coronary artery without angina pectoris; D69.6 Thrombocytopenia, unspecified; I35.0 Nonrheumatic aortic (valve) stenosis; E78.5 Hyperlipidemia, unspecified; I12.9 Hypertensive chronic kidney disease with stage 1 through stage 4 chronic kidney disease, or unspecified chronic kidney disease; N18.9 Chronic kidney disease, unspecified; Y95 Nosocomial condition; E83.42 Hypomagnesemia; Z66 Do not resuscitate; Z51.5 Encounter for palliative care; Z20.828 Contact with and (suspected) exposure to other viral communicable diseases; I25.2 Old myocardial infarction; Z79.82 Long term (current) use of aspirin; Z95.5 Presence of coronary angioplasty implant and graft; Z79.899 Other long term (current) drug therapy; Z86.718 Personal history of other venous thrombosis and embolism; Z79.01 Long term (current) use of anticoagulants; Z87.891 Personal history of nicotine dependence; Z90.49 Acquired absence of other specified parts of digestive tract